=== PATIENT | female | born 1945 | race Caucasian/White ===

== ENCOUNTER → 2018-09-30 | Outpatient (CLI) | payer MEDICARE ==
--- NOTE | 2018-09-30 17:02 | PCVCIMAG ---
APPROVED REPORT Study performed: 09/30/2018 14:16:25 Exam: Stress Echocardiogram Indication: Hyperlipidemia, Hypertension Patient Location: Echo lab Stress Nurse: Ayala Hutchins RN Room #: 2 Status: routine Ht: 5 ft 6 in HR: 87 bpm BP: 156/90 mmHg Rhythm: NSR Medical History Medical History: HTN, Hyperlipidemia, No history of CAD Cardiac Risk Factors: HTN, Hyperlipidemia, FHX of CAD Previous Cardiac Procedures: none Pretest Chest Pain Characteristics: No chest pain Exercise History: Sedentary Procedure The patient underwent an Exercise Stress Test using the Ines Protocol. Blood pressure, heart rate, and EKG were monitored. An Echocardiogram was performed by quality technician in four stages in quad fashion. At peak stress, four selected images were obtained and placed side by side with resting images for comparison. Stress Test Details Stress Test: Exercise stress testing was performed using a Ines protocol. HR Resting HR: 87 bpmMax Heart Rate (APMHR): 148 bpm Max HR Achieved: 151 bpmTarget HR (85% APMHR): 125 bpm % of APMHR: 102 Recovery HR: 100 bpm HR response to stress: Normal HR response to stress BP Resting BP: 156/90 mmHg Max BP: 190/90 mmHg Recovery BP: 150/86 mmHg BP response to stress: hypertensive response to stress. ECG Resting ECG: Sinus Rhythm, NSSTT changes Stress ECG: Sinus Rhythm, NSSTT changes ST Change: Upsloping ST depression Arrhythmia: Rare PAC,PVC Recovery ECG: Sinus Rhythm, NSSTT changes Recovery ST Change: Non-ischemic Recovery Arrhythmia: None Clinical Reason for Termination: Maximal effort Stress Symptoms: Leg Fatigue Exercise duration: 6 min 00 sec Highest Stage Achieved: Stage 2: 2.5 mph at 12% grade. Exercise capacity: 7.0 METs Overall Exercise Capacity for Age: Average Scale: Sedentary Angina Score: None No complications. Stress ECG Conclusion The patient exercised according to the INES protocol for 6:00 mins; achieving a work level of 7.0 METS. The resting heart rate of 87 bpm regulo to a maximum heart rate of 151 bpm. This value represent 102% of the maximal, age-predicted heart rate. The resting blood pressure of 156/90 mmHg, regulo to a maximum blood pressure of 190/90 mmHg. The exercise test was stopped due to fatigue. Pre-Stress Echo The resting Echocardiogram showed normal left ventricular contractility with an estimated Ejection Fraction of about 55-60%. Normal wall motion in all segments on baseline images. Post-Stress Echo The stress Echocardiogram showed normal left ventricular contractility with an estimated Ejection Fraction of about 65-70%. Conclusion Clinical Response: Non-ischemic Exercise Capacity: Average Stress ECG Response: Non-ischemic Stress Echo Images: Non-ischemic No clinical, EKG or echocardiographic evidence for ischemia. No echocardiographic evidence for exercise induced ischemia. Normal stress echocardiogram with maximal exercise stress. <Conclusion> No clinical, EKG or echocardiographic evidence for ischemia. No echocardiographic evidence for exercise induced ischemia. Normal stress echocardiogram with maximal exercise stress.
== END | disposition home or self-care (01) ==
LOC: PCVCIMAG 13:07
PROVIDERS: ATTEND Internal Medicine Cardiovascular Disease
DX: I10 Essential (primary) hypertension (principal); E78.5 Hyperlipidemia, unspecified; E78.00 Pure hypercholesterolemia, unspecified
CPT/HCPCS: 36415; 80061; 93325; 93351; G0463